=== PATIENT | female | born 1975 | race African-American/Black ===

== ENCOUNTER 2019-09-26 16:32 | Emergency (ER) | payer MEDICAID ==
[~2019-09-26] VITALS: Ht 167.6 cm; Wt 111.0 kg
[2019-09-26] MEDS ORDERED: IBUP-1653 PO (16:46)
[2019-09-26] MEDS ORDERED: KETOROLAC 60MG/2ML VIAL IM ONE (17:30)
[2019-09-26 19:00] VITALS: BP 142/91
== END 2019-09-26 19:43 | disposition home or self-care (01) ==
LOC: ER 16:32
DX: M25.561 Pain in right knee (principal); J45.909 Unspecified asthma, uncomplicated
CPT/HCPCS: 73560; 81025; 96372; 99283; J1885; L1830; Z7610